=== PATIENT | female | born 1950 | race Caucasian/White ===

== ENCOUNTER 2019-08-28 07:06 | Outpatient (CLI) | payer MEDICARE, OTHER ==
[2019-08-28 11:39] LABS: #Basophils 0.1 thou/uL (0.0-0.2); #Eosinphils 0.3 thou/uL (0.0-0.7); #Lymphocytes 3.7 thou/uL (1.20-3.40); #Monocytes 0.8 thou/uL (0.11-0.59); %Eosinophils 3.8 % (0.0-10.0); %Lymphocytes 41.7 % (21.0-51.0); %Monocytes 8.5 % (0.0-10.0); %Neutrophils 44.9 % (42.0-75.0); Hemoglobin 15.1 g/dL (12.0-16.0); Mean Corpuscular HGB CONC 34.6 g/dL (32.0-36.0); Mean Corpuscular Hemoglobin 30.6 pg (27.0-31.0); Mean Corpuscular Volume 88.5 fL (78.0-98.0); Platelet Count 316 thou/uL (130-400); RBC Distribution Width 11.3 % (11.5-14.5); Red Blood Cell (RBC) Count 4.95 mill/uL (4.20-5.40); White Blood Cell (WBC) Count 8.9 thou/uL (4.8-10.8)
[2019-08-28 12:32] LABS: Anion Gap 16 mmol/L (10-20); BUN (Urea Nitrogen) 10 mg/dL (9.8-20.1); Calc. Creatinine Clearance 0 mL/min (70-130); Calcium 9.6 mg/dL (7.8-10.44); Carbon Dioxide 24 mmol/L (23-31); Chloride 103 mmol/L (98-107); Estimated GFR-MDRD 80; Glucose 161 mg/dL (80-115); Potassium 4.1 mmol/L (3.5-5.1); Sodium 139 mmol/L (136-145)
[2019-08-28 13:07] LABS: Bacteria/HPF None Seen HPF (None Seen); Bilirubin Negative (Negative); Blood, Urine Negative (Negative); Calcium Oxalate Crystals 4+ HPF (None Seen); Clarity Clear (Clear); Glucose, Urine (Dipstick) Normal (Negative); Leukocyte Negative Leu/uL (Negative); Nitrite Negative (Negative); Protein, Urine (Dipstick) 10 mg/dL (Neg-Trace); RBC/HPF 0-3 HPF (0-3); Squamous Epithelial 0-3 HPF (0-3); Urobilinogen Normal mg/dL (Less than 2); WBC/HPF 0-3 HPF (0-3)
[2019-08-28 15:17] LABS: INR-International Normal Ratio 1.1; Prothrombin Time 13.8 sec (12.0-14.7)
[2019-08-29 11:54] LABS: SARS-CoV-2 MS2 Positive; SARS-CoV-2 N Gene Negative; SARS-CoV-2 S Gene Negative; SARS-CoV-2 orf1ab Negative
== END 2019-08-28 07:07 | disposition home or self-care (01) ==
LOC: LABBT 07:06
PROVIDERS: ATTEND Orthopaedic Surgery
DX: Z01.818 Encounter for other preprocedural examination (principal); Z11.59 Encounter for screening for other viral diseases; M17.12 Unilateral primary osteoarthritis, left knee
CPT/HCPCS: 80048; 81001; 85025; 85610; 87081; U0003; 87635

== ENCOUNTER 2019-09-02 05:33 | Day surgery (SDC) | payer MEDICARE ==
[2019-09-02] MEDS ORDERED: Tranexamic Acid 1,000 MG/10 ML VIAL ONE ×2 (06:02→08:54)
[2019-09-02] MEDS ORDERED: Sodium Chloride 0.9% 100 ML ONE (06:02)
[2019-09-02] MEDS ORDERED: Vancomycin 1 GM/200 ML BAG ONE (06:02)
[2019-09-02] MEDS ORDERED: Midazolam HCl 2 mg/2 ml Vial ONE (06:29)
[2019-09-02] MEDS ORDERED: Fentanyl 100 MCG/2 ML VIAL ONE ×2 (06:29→07:14)
[2019-09-02] MEDS ORDERED: Scopolamine 1.5 mg/72 hour Patch ONE (06:30)
[2019-09-02] MEDS ORDERED: Famotidine/PF 20 mg/2ml Vial ONE ×2 (06:30→07:10)
[2019-09-02] MEDS ORDERED: methylPREDNISolone Acetate 40 mg/ml Vial ONE (06:31)
[2019-09-02] MEDS ORDERED: Bupivacaine PF 0.5% 30 ML VIAL ONE (06:31)
[2019-09-02] MEDS ORDERED: Lidocaine 1% (PF) 30 ML VIAL ONE ×2 (06:31→06:37)
[2019-09-02] MEDS ORDERED: Ondansetron PF 4 MG/2 ML Vial IVP PRN ×2 (07:26→07:42)
[2019-09-02] MEDS ORDERED: traMADol HCl 50 MG TAB PO PRN ×3 (07:26→07:42)
[2019-09-02] MEDS ORDERED: Fentanyl 100 MCG/2 ML VIAL SLOW IVP PRN ×2 (07:26→07:43)
[2019-09-02] MEDS ORDERED: Promethazine HCl 25 MG/ML VIAL IM PRN ×3 (07:26→08:43)
[2019-09-02] MEDS ORDERED: Acetaminophen 325 MG TAB PO PRN (07:26)
[2019-09-02] MEDS ORDERED: HYDROcodone/Acetaminophen 10/325 mg Tablet PO PRN ×3 (07:26→07:42)
[2019-09-02] MEDS ORDERED: diphenhydrAMINE 25 MG CAP PO PRN (07:26)
[2019-09-02] MEDS ORDERED: Zolpidem Tartrate 5 MG TAB PO PRN ×2 (07:26→07:42)
[2019-09-02] MEDS ORDERED: Tranexamic Acid 1,000 MG in Sodium Chloride 0.9% 100 ML IVPB SCH (07:30)
[2019-09-02] MEDS ORDERED: Ropivacaine HCl/PF 250 ML in Premix Bag 1 BAG NERVE BLCK SCH (07:42)
[2019-09-02] MEDS ORDERED: Promethazine HCl 25 MG/ML VIAL SLOW IVP PRN (08:43)
[2019-09-02] MEDS ORDERED: Meperidine HCl/PF 25 MG/ML VIAL SLOW IVP PRN (08:43)
[2019-09-02] MEDS ORDERED: HYDROmorphone 2 MG/ML VIAL SLOW IVP PRN (08:43)
[2019-09-02] MEDS ORDERED: Calcium Carbonate 500 MG TAB PO SCH (09:00)
[2019-09-02] MEDS ORDERED: Multivit, Therapeutic 1 TAB PO SCH (09:00)
[2019-09-02] MEDS ORDERED: Non-Formulary Item 1 EACH (Multivitamin [Multi-Vitamin Daily] 1 TAB) PO SCH (09:00)
--- NOTE | 2019-09-02 09:42 | OP ---
DATE OF PROCEDURE: 09/02/2019 PREOPERATIVE DIAGNOSIS: Bilateral knee arthritis, right worse than left. POSTOPERATIVE DIAGNOSIS: Bilateral knee arthritis, right worse than left. PROCEDURES PERFORMED: 1. Right total knee replacement using [employer] pinless navigation. 2. Left knee corticosteroid injection. RECREATION FACILITY MANAGER: Gopi Jenkins PA-C ESTIMATED BLOOD LOSS: Minimal. COMPLICATIONS: None. ANESTHESIA: She did have a general anesthetic as well as a preoperative block. IMPLANTS: [employer] total knee system. The femur was a size 3 cruciate retaining femur. We used a size 3 primary tibial baseplate. We used a 3 x 9 mm CS X3 tibial poly and a 27 x 8 symmetric X3 patella. DISPOSITION: She did go to recovery room in stable condition. INDICATIONS FOR PROCEDURE: This is a 68-year-old female, who had a bilateral knee arthritis with the right being worse than the left. At this time, she is presenting for right knee replacement and a left knee corticosteroid injection. DESCRIPTION OF PROCEDURE: After all appropriate consent forms were explained and signed, she was taken back to the operating room, at this time was given a general anesthetic. Once the level of anesthesia was appropriate, the left knee was cleaned with alcohol and local with 80 mg of Depo-Medrol was injected to the knee without complication. A well-padded tourniquet was placed on the right leg, and the leg was then prepped and draped in standard surgical fashion. The limb was exsanguinated and tourniquet taken up to 300 mmHg. Midline incision was made with a 10 blade down through the skin and subcutaneous tissue. Bovie electrocautery was used to coagulate any brisk venous bleeding. A new blade was used to make a medial parapatellar arthrotomy. Small subperiosteal release was performed medially and excess fat pad was removed. The knee was flexed up to gain access to the femur. The femur was navigated and distal femoral resection was made. Epicondylar access was used to align our sizing jig and this was pinned in place. We sized our femur to be a size 3 cruciate retaining femur. 4:1 cutting block was applied and pinned. Anterior and posterior chamfer cuts were then made. We navigated out our proximal tibia and made our proximal tibial resection. Spreaders were used to remove any posterior osteophytes off the back of the femur as well as remaining meniscal tissue. A long alignment debby was then used to achieve correct rotation of our tibial baseplate and a size 3 primary tibial baseplate was chosen. This was pinned in place. We trialed the polyethylene and a 3 x 9 mm CS X3 tibial polyethylene gave us full extension and good stability throughout range of motion. Two towel clips and a saw were used to cut our patella. Three lug nuts were drilled and 27 x 8 symmetric X3 patella was trialed which sat nicely in the trochlear groove. We then drilled our femur and punched our tibia. All components were removed. The knee was thoroughly irrigated and dried. Cement was mixed into the cement gun on the back table. Components were then placed. The knee was held out in full extension until the cement had dried. All excess bone cement was removed. Multiple #2 Vicryl stitches as well as a Quill were used to close our extensor mechanism. 0 Quill followed by a running Monoderm was then used to close the skin. Surgicel glue was then used on the skin. Once this had dried, soft tissue dressing was applied to the limb, tourniquet was let down, and the toes pinked up nicely. The patient was then awakened and taken to the recovery room in stable condition. All counts were correct at the end of the case. The patient did receive preoperative IV antibiotics. The patient was injected with Marcaine for postoperative pain relief. Job ID: [id number]
[2019-09-02] MEDS ORDERED: Insulin Regular 300 UNITS/3 ML VIAL SC PRN ×2 (10:10)
[2019-09-02] MEDS ORDERED: Dextrose 50% Abboject 50 ML SYRINGE SLOW IVP PRN (10:10)
[2019-09-02] MEDS ORDERED: Dextrose 5% in Water 1,000 ML IV PRN (10:10)
[2019-09-02] MEDS: Sodium Chloride 0.9% 1,000 ML IV SCH ×2 (11:28→14:12)
[2019-09-02] MEDS: Calcium Carbonate 500 MG TAB PO SCH (11:28)
[2019-09-02] MEDS: Aspirin 81 mg Enteric Coated Tablet PO SCH ×2 (11:28→21:14)
[2019-09-02] MEDS ORDERED: Ropivacaine 0.2% HCl/PF (40 MG/20 ML VIAL) ONE (11:42)
[2019-09-02] MEDS ORDERED: Ondansetron PF 4 MG/2 ML Vial ONE (11:42)
[2019-09-02] MEDS ORDERED: Bupivacaine HCl 0.5%/Epinephrine 1:200,000/PF 30 ml Vial ONE (11:42)
[2019-09-02] MEDS ORDERED: PHENYLEPHRINE-NS 100 MCG/ML 10 ML SYRINGE ONE (11:42)
[2019-09-02] MEDS ORDERED: Ketorolac Tromethamine 30 MG/ML VIAL ONE (11:42)
[2019-09-02] MEDS ORDERED: Lidocaine 1% PF 5 ML VIAL ONE (11:42)
[2019-09-02] MEDS ORDERED: PROPOFOL 200 MG/20 ML VIAL ONE (11:42)
[2019-09-02] MEDS ORDERED: Ketorolac Tromethamine 30 MG/ML VIAL IVP SCH ×2 (12:00→14:00)
--- NOTE | 2019-09-02 13:21 | PDOC.HOSPP ---
- Subjective Encounter Date: 09/02/19 Encounter Time: 11:45 Subjective: Patient seen and examined for med mngt. Pain controlled. No CP/SOB. No new complaints. - Objective Vital Signs & Weight: Weight Weight 175 lb Additional Labs: Accuchecks 09/02/19 11:39 POC Glucose 140 H Laboratory Tests 08/27/19 08/27/19 09:46 09:46 Hgb 15.1 Sodium 139 Creatinine 0.73 EKG Reviewed by me: Yes (SR) Hospitalist ROS - Review of Systems Respiratory: denies: cough, dry, shortness of breath, hemoptysis, SOB with excertion, pleuritic pain, sputum, wheezing, other Cardiovascular: denies: chest pain, palpitations, orthopnea, paroxysmal noc. dyspnea, edema, light headedness, other Gastrointestinal: denies: nausea, vomiting, abdominal pain, diarrhea, constipation, melena, hematochezia, other - Medication Medications: Active Medications Generic Name Dose Route Start Last Admin Trade Name Freq PRN Reason Stop Dose Admin Aspirin 81 mg 09/02/19 09:00 09/02/19 11:28 Ecotrin PO Not Given BID ANGELA Calcium Carbonate 500 mg 09/02/19 09:00 09/02/19 11:28 Oscal-500 PO Not Given DAILY [facility] Sodium Chloride 1,000 mls @ 100 mls/hr 09/02/19 07:30 09/02/19 11:28 Normal Saline 0.9% IV Not Given .Q10H ANGELA - Exam General Appearance: NAD Neck: supple, no JVD Heart: RRR, no gallops Respiratory: no wheezes, no rales, no ronchi Gastrointestinal: non-tender, non-distended, normal bowel sounds Extremities: no edema Neurological: no new deficit Hosp A/P - Plan DVT proph w/SCDs DM2 Anxiety GERD Glaucoma Obesity BMI 30 CKD 2 PLAN: Resume Metformin Add sliding scale Resume Effexor PT/OT Full code DPOA - family Thank you for this consultation. Will follow
[2019-09-02] MEDS: CEFAZOLIN 2 GM in Premix Bag 1 BAG IVPB SCH ×2 (14:10→21:15)
[2019-09-02] MEDS: Ketorolac Tromethamine 30 MG/ML VIAL IVP SCH ×2 (14:11→21:13)
[2019-09-02] MEDS ORDERED: Vancomycin 1 GM in Premix Bag 1 BAG IVPB SCH (18:00)
[2019-09-02] MEDS: metFORMIN 500 MG TAB PO SCH (18:01)
[2019-09-03] MEDS: Ketorolac Tromethamine 30 MG/ML VIAL IVP SCH ×4 (02:17→21:21)
[2019-09-03 05:19] LABS: Mean Corpuscular HGB CONC 33.6 g/dL (32.0-36.0); Mean Corpuscular Hemoglobin 30.2 pg (27.0-31.0); Mean Platelet Volume 8.1 fL (7.4-10.4); Platelet Count 267 thou/uL (130-400); RBC Distribution Width 11.5 % (11.5-14.5); Red Blood Cell (RBC) Count 3.98 mill/uL (4.20-5.40); White Blood Cell (WBC) Count 12.4 thou/uL (4.8-10.8)
[2019-09-03] MEDS: Sodium Chloride 0.9% 1,000 ML IV SCH ×3 (06:08→22:58)
[2019-09-03] MEDS: Aspirin 81 mg Enteric Coated Tablet PO SCH ×2 (08:51→21:22)
[2019-09-03] MEDS: Calcium Carbonate 500 MG TAB PO SCH (08:57)
[2019-09-03] MEDS: Ferrous Gluconate 324 MG TAB PO SCH ×2 (08:57→17:41)
[2019-09-03] MEDS: Senokot S 8.6-50 MG TAB PO SCH ×2 (08:57→21:22)
[2019-09-03] MEDS: Multivitamin W/ Minerals 1 TAB PO SCH (08:59)
[2019-09-03] MEDS ORDERED: Calcium Carbonate 500 MG ChewTAB PO PRN (11:34)
[2019-09-03] MEDS ORDERED: Loratadine 10 MG TAB PO PRN (11:34)
[2019-09-03] MEDS ORDERED: Mag-Al 1200 mg/1200 mg/30 ML UDCUP PO PRN (11:35)
--- NOTE | 2019-09-03 13:58 | PRG ---
DATE OF SERVICE: 09/03/2019 SUBJECTIVE: Jeimy is a 68-year-old female, postop day #1 from a right total knee arthroplasty. She is doing relatively well. She has no complaints and she is quite comfortable this morning. OBJECTIVE: VITAL SIGNS: Temperature 98.8, pulse 68, respiratory rate 16, and blood pressure 108/65. GENERAL: She is alert and oriented to person, place, time, situation. Responsive and appropriate with examiner, conversive. MUSCULOSKELETAL: Incision is clean. No strikethrough. No erythema. No malrotation or shortening. LABORATORY DATA: Hemoglobin and hematocrit 12.0 and 35.8. IMPRESSION: A 68-year-old female, postop day #1 right total knee arthroplasty, doing well. PLAN: Continue current care. Probable discharge home tomorrow. Job ID: [id number]
[2019-09-03] MEDS: HYDROcodone/Acetaminophen 10/325 mg Tablet PO PRN ×2 (14:16→21:35)
[2019-09-03] MEDS: metFORMIN 500 MG TAB PO SCH (17:41)
[2019-09-04] MEDS: Ketorolac Tromethamine 30 MG/ML VIAL IVP SCH ×2 (04:41→08:16)
[2019-09-04 05:40] LABS: Hemoglobin 11.2 g/dL (12.0-16.0); Mean Corpuscular HGB CONC 34.8 g/dL (32.0-36.0); Mean Corpuscular Hemoglobin 31.2 pg (27.0-31.0); Mean Corpuscular Volume 89.5 fL (78.0-98.0); Mean Platelet Volume 7.7 fL (7.4-10.4); Platelet Count 256 thou/uL (130-400); RBC Distribution Width 11.3 % (11.5-14.5); Red Blood Cell (RBC) Count 3.61 mill/uL (4.20-5.40); White Blood Cell (WBC) Count 9.1 thou/uL (4.8-10.8)
[2019-09-04] MEDS: Senokot S 8.6-50 MG TAB PO SCH (08:17)
[2019-09-04] MEDS: Calcium Carbonate 500 MG TAB PO SCH (08:17)
[2019-09-04] MEDS: Aspirin 81 mg Enteric Coated Tablet PO SCH (08:17)
[2019-09-04] MEDS: Ferrous Gluconate 324 MG TAB PO SCH (08:17)
[2019-09-04] MEDS: Multivitamin W/ Minerals 1 TAB PO SCH (08:17)
[2019-09-04] MEDS: Sodium Chloride 0.9% 1,000 ML IV SCH (11:12)
[2019-09-04 11:59] VITALS: BP 145/86; TEMP 98.7
[2019-09-04] MEDS: HYDROcodone/Acetaminophen 10/325 mg Tablet PO PRN (12:16)
== END 2019-09-04 13:40 | disposition home or self-care (01) ==
LOC: SDC 05:33 → SJJU 06:00 → SDC 09-04 13:40
PROVIDERS: ATTEND Orthopaedic Surgery
PROC: 3E0U33Z Introduction of Anti-inflammatory into Joints, Percutaneous Approach (ICD-10-PCS; principal; 2019-09-02)
PROC: 0SRD0J9 Replacement of Left Knee Joint with Synthetic Substitute, Cemented, Open Approach (ICD-10-PCS; 2019-09-02)
PROC: 8E0YXBZ Computer Assisted Procedure of Lower Extremity (ICD-10-PCS; 2019-09-02)
PROC: 3E0T3BZ Introduction of Anesthetic Agent into Peripheral Nerves and Plexi, Percutaneous Approach (ICD-10-PCS; 2019-09-02)
PROC: 3E0T3BZ Introduction of Anesthetic Agent into Peripheral Nerves and Plexi, Percutaneous Approach (ICD-10-PCS; 2019-09-02)
DX: M17.0 Bilateral primary osteoarthritis of knee (principal); E11.22 Type 2 diabetes mellitus with diabetic chronic kidney disease; N18.2 Chronic kidney disease, stage 2 (mild); F41.9 Anxiety disorder, unspecified; K21.9 Gastro-esophageal reflux disease without esophagitis; E66.9 Obesity, unspecified; Z68.30 Body mass index [BMI] 30.0-30.9, adult; Z79.84 Long term (current) use of oral hypoglycemic drugs; Z79.899 Other long term (current) drug therapy; Z88.1 Allergy status to other antibiotic agents; Z88.2 Allergy status to sulfonamides
CPT/HCPCS: 20610; 20985; 27447; 64445; 64448; 82962; 85027; 97110 ×3; 97116 ×3; 97139 ×3; 97530 ×2; C1713; C1776; 36415; 36416; J0670; J0690; J1885; J2001; J2250; J2405; J2704; J2795; J2920; J3010; J3370; J3490; S0020; S0028

== ENCOUNTER 2020-07-29 16:16 | Outpatient (CLI) | payer MEDICARE ==
[2020-07-29 18:28] LABS: Bilirubin Neg (Negative); Blood, Urine Negative (Negative); Clarity Clear (Clear); Glucose, Urine (Dipstick) Normal (Negative); Ketone, Urine Negative (Negative); Leukocyte 25 (Negative); Nitrite Negative (Negative); Protein, Urine (Dipstick) Negative (Neg-Trace); Urobilinogen Normal mg/dL (Less than 2)
[2020-07-29 18:29] LABS: #Basophils 0.1 10x3/uL (0.0-0.2); #Eosinphils 0.3 10x3/uL (0.0-0.5); #Monocytes 0.7 10x3/uL (0.0-1.1); #Neutrophils 3.7 10x3/uL (1.5-8.4); %Basophils 0.7 % (0.0-2.0); %Eosinophils 3.2 % (0.0-6.0); %Lymphocytes 44.1 % (18.0-47.0); %Neutrophils 43.8 % (40.0-75.0); Hemoglobin 13.7 g/dL (12.0-15.5); Mean Corpuscular HGB CONC 33.2 g/dL (32.0-36.0); Mean Corpuscular Volume 87.3 fl (81.6-98.3); Mean Platelet Volume 10.8 fl (7.4-10.4); Platelet Count 320 10x3/uL (150-450); Red Blood Cell (RBC) Count 4.73 10x6/uL (3.90-5.03); White Blood Cell (WBC) Count 8.5 10x3/uL (3.5-10.5)
[2020-07-29 18:39] LABS: Bacteria/HPF 1+ HPF (None Seen); RBC/HPF None Seen HPF (0-3); Squamous Epithelial 0-3 HPF (0-3); WBC/HPF 0-3 HPF (0-3)
[2020-07-30 01:06] LABS: SARS-CoV-2 PCR by NAA Not Detected (NotDetected)
== END 2020-07-29 16:17 | disposition home or self-care (01) ==
LOC: LABBT 16:16
PROVIDERS: ATTEND Orthopaedic Surgery
DX: Z01.818 Encounter for other preprocedural examination (principal); M17.12 Unilateral primary osteoarthritis, left knee; M65.331 Trigger finger, right middle finger; Z20.822 Contact with and (suspected) exposure to COVID-19
CPT/HCPCS: 81001; 85025; 85610; U0003; U0005; 87635; 93005; 93010

== ENCOUNTER 2020-08-03 05:44 | Day surgery (SDC) | payer MEDICARE ==
[2020-07-31 11:08] VITALS: BMI 30.9
[2020-08-03] MEDS ORDERED: Sodium Chloride 0.9% 100 ML ONE (06:15)
[2020-08-03] MEDS ORDERED: Tranexamic Acid 1,000 MG/10 ML VIAL ONE ×2 (06:15→09:40)
[2020-08-03] MEDS ORDERED: Lidocaine 1% (PF) 30 ML VIAL ONE ×2 (06:27→06:41)
[2020-08-03] MEDS ORDERED: methylPREDNISolone Acetate 40 mg/ml Vial ONE ×2 (06:27→07:16)
[2020-08-03] MEDS ORDERED: Vancomycin 1.5 GRAM/300 ML BAG 1.5 GM in Premix Bag 1 BAG IVPB SCH (06:30)
[2020-08-03] MEDS ORDERED: Fentanyl 100 MCG/2 ML VIAL ONE ×3 (06:41→10:33)
[2020-08-03] MEDS ORDERED: Midazolam HCl 2 mg/2 ml Vial ONE (06:41)
[2020-08-03] MEDS ORDERED: Clindamycin/D5W 900 mg/50 ml Premix Bag ONE (06:57)
[2020-08-03] MEDS ORDERED: Sterile Water 10 ML ONE (07:01)
[2020-08-03] MEDS ORDERED: Famotidine/PF 20 mg/2ml Vial ONE (07:12)
[2020-08-03] MEDS ORDERED: Zolpidem Tartrate 5 MG TAB PO PRN ×2 (07:24→08:00)
[2020-08-03] MEDS ORDERED: traMADol HCl 50 MG TAB PO PRN ×3 (07:24→08:00)
[2020-08-03] MEDS ORDERED: HYDROcodone/Acetaminophen 10/325 mg Tablet PO PRN ×3 (07:24→08:00)
[2020-08-03] MEDS ORDERED: Promethazine HCl 25 MG/ML VIAL IM PRN ×3 (07:24→08:43)
[2020-08-03] MEDS ORDERED: Fentanyl 100 MCG/2 ML VIAL SLOW IVP PRN ×2 (07:24→07:53)
[2020-08-03] MEDS ORDERED: Acetaminophen 325 MG TAB PO PRN (07:24)
[2020-08-03] MEDS ORDERED: Ondansetron PF 4 MG/2 ML Vial IVP PRN ×2 (07:24→08:00)
[2020-08-03] MEDS ORDERED: Ketorolac Tromethamine 30 MG/ML VIAL ONE (07:27)
[2020-08-03] MEDS ORDERED: PROPOFOL 200 MG/20 ML VIAL ONE (07:27)
[2020-08-03] MEDS ORDERED: Lidocaine 1% PF 5 ML VIAL ONE ×2 (07:27)
[2020-08-03] MEDS ORDERED: Ropivacaine 0.5% HCl/PF (150 MG/30 ML VIAL) ONE (07:27)
[2020-08-03] MEDS ORDERED: PHENYLEPHRINE-NS 100 MCG/ML 10 ML SYRINGE ONE (07:27)
[2020-08-03] MEDS ORDERED: Ropivacaine 2% HCl/PF (20 MG/10 ML VIAL) ONE (07:27)
[2020-08-03] MEDS ORDERED: Metoclopramide HCl 10 MG/2 ML VIAL ONE (07:27)
[2020-08-03] MEDS ORDERED: Ondansetron PF 4 MG/2 ML Vial ONE (07:27)
[2020-08-03] MEDS ORDERED: Tranexamic Acid 1,000 MG in Sodium Chloride 0.9% 100 ML IVPB SCH (07:30)
[2020-08-03] MEDS ORDERED: Ropivacaine HCl/PF 250 ML in Premix Bag 1 BAG NERVE BLCK SCH (08:00)
[2020-08-03] MEDS ORDERED: Bupivacaine 0.25% HCL 30 ML VIAL ONE (08:12)
[2020-08-03] MEDS ORDERED: HYDROmorphone 2 MG/ML VIAL SLOW IVP PRN (08:43)
[2020-08-03] MEDS ORDERED: Meperidine HCl/PF 25 MG/ML VIAL SLOW IVP PRN (08:43)
[2020-08-03] MEDS ORDERED: Promethazine HCl 25 MG/ML VIAL SLOW IVP PRN (08:43)
[2020-08-03] MEDS ORDERED: Non-Formulary Item 1 EACH (Multivitamin [Multi-Vitamin Daily] 1 TABLET Tablet) PO SCH (09:00)
[2020-08-03] MEDS: Aspirin 81 mg Enteric Coated Tablet PO SCH ×2 (11:53→19:59)
[2020-08-03] MEDS: Sodium Chloride 0.9% 1,000 ML IV SCH ×2 (11:53→18:29)
[2020-08-03] MEDS: Loratadine 10 MG TAB PO SCH (11:53)
[2020-08-03] MEDS: Calcium Carbonate 500 MG TAB PO SCH (11:53)
[2020-08-03] MEDS: Ketorolac Tromethamine 30 MG/ML VIAL IVP SCH ×3 (12:07→23:54)
[2020-08-03] MEDS ORDERED: Ketorolac Tromethamine 30 MG/ML VIAL IVP SCH (14:00)
[2020-08-03] MEDS: Clindamycin/D5W 900 MG in Premix Bag 1 BAG IVPB SCH ×2 (14:14→20:00)
[2020-08-03] MEDS: HYDROcodone/Acetaminophen 10/325 mg Tablet PO PRN (14:20)
[2020-08-03] MEDS: Losartan 25 MG TAB PO SCH (17:12)
[2020-08-03] MEDS: diphenhydrAMINE 25 MG CAP PO PRN ×3 (17:13→23:54)
[2020-08-03] MEDS: metFORMIN 500 MG TAB PO SCH (17:13)
[2020-08-03] MEDS: Atorvastatin Calcium 20 MG TAB PO SCH (19:59)
[2020-08-03] MEDS: Cyanocobalamin (Vitamin B-12) 1,000 MCG TAB PO SCH (19:59)
[2020-08-03] MEDS: Ezetimibe 10 MG TAB PO SCH (19:59)
[2020-08-03] MEDS ORDERED: Vancomycin HCl 1.5 GM in Sodium Chloride 0.9% 250 ML 300 ML IVPB SCH (20:00)
[2020-08-04] MEDS: Sodium Chloride 0.9% 1,000 ML IV SCH ×2 (03:13→13:48)
[2020-08-04] MEDS: Ketorolac Tromethamine 30 MG/ML VIAL IVP SCH ×3 (05:35→18:28)
[2020-08-04 06:23] LABS: Hemoglobin 11.4 g/dL (12.0-16.0); Mean Corpuscular HGB CONC 34.1 g/dL (32.0-36.0); Mean Corpuscular Hemoglobin 30.8 pg (27.0-31.0); Mean Corpuscular Volume 90.5 fL (78.0-98.0); Mean Platelet Volume 8.3 fL (7.4-10.4); Platelet Count 235 thou/uL (130-400); RBC Distribution Width 11.4 % (11.5-14.5); White Blood Cell (WBC) Count 9.8 thou/uL (4.8-10.8)
[2020-08-04] MEDS: HYDROcodone/Acetaminophen 10/325 mg Tablet PO PRN ×5 (07:21→22:59)
[2020-08-04] MEDS: Loratadine 10 MG TAB PO SCH (08:32)
[2020-08-04] MEDS: Senokot S 8.6-50 MG TAB PO SCH ×2 (08:32→20:45)
[2020-08-04] MEDS: Aspirin 81 mg Enteric Coated Tablet PO SCH ×2 (08:32→20:45)
[2020-08-04] MEDS: Ferrous Gluconate 324 MG TAB PO SCH ×2 (08:32→18:29)
[2020-08-04] MEDS: Losartan 25 MG TAB PO SCH (08:32)
[2020-08-04] MEDS: Calcium Carbonate 500 MG TAB PO SCH (08:32)
[2020-08-04] MEDS: Multivitamin W/ Minerals 1 TAB PO SCH (08:32)
[2020-08-04] MEDS: metFORMIN 500 MG TAB PO SCH (18:28)
[2020-08-04] MEDS: Atorvastatin Calcium 20 MG TAB PO SCH (20:45)
[2020-08-04] MEDS: Ezetimibe 10 MG TAB PO SCH (20:45)
[2020-08-04] MEDS: Cyanocobalamin (Vitamin B-12) 1,000 MCG TAB PO SCH (20:46)
[2020-08-05] MEDS: Sodium Chloride 0.9% 1,000 ML IV SCH ×2 (00:48→11:10)
[2020-08-05] MEDS: Ketorolac Tromethamine 30 MG/ML VIAL IVP SCH ×2 (00:48→05:20)
[2020-08-05 05:44] LABS: Hemoglobin 11.9 g/dL (12.0-16.0); Mean Corpuscular HGB CONC 34.6 g/dL (32.0-36.0); Mean Corpuscular Hemoglobin 30.8 pg (27.0-31.0); Mean Corpuscular Volume 89.1 fL (78.0-98.0); Mean Platelet Volume 8.1 fL (7.4-10.4); Platelet Count 235 thou/uL (130-400); RBC Distribution Width 11.4 % (11.5-14.5); Red Blood Cell (RBC) Count 3.88 mill/uL (4.20-5.40); White Blood Cell (WBC) Count 11.1 thou/uL (4.8-10.8)
[2020-08-05] MEDS: HYDROcodone/Acetaminophen 10/325 mg Tablet PO PRN ×2 (06:25→11:29)
[2020-08-05] MEDS: Senokot S 8.6-50 MG TAB PO SCH (09:03)
[2020-08-05] MEDS: Aspirin 81 mg Enteric Coated Tablet PO SCH (09:04)
[2020-08-05] MEDS: Multivitamin W/ Minerals 1 TAB PO SCH (09:04)
[2020-08-05] MEDS: Ferrous Gluconate 324 MG TAB PO SCH (09:04)
[2020-08-05] MEDS: Losartan 25 MG TAB PO SCH (09:05)
[2020-08-05] MEDS: Calcium Carbonate 500 MG TAB PO SCH (09:05)
[2020-08-05] MEDS: Loratadine 10 MG TAB PO SCH (09:05)
[2020-08-05 11:55] VITALS: BP 163/84; TEMP 98.5
== END 2020-08-05 15:15 | disposition home or self-care (01) ==
LOC: SDC 05:44 → SURG B 07:24 → SDC 08-05 15:15
PROVIDERS: ATTEND Orthopaedic Surgery
PROC: 0SRD0J9 Replacement of Left Knee Joint with Synthetic Substitute, Cemented, Open Approach (ICD-10-PCS; principal; 2020-08-03)
PROC: 8E0YXBZ Computer Assisted Procedure of Lower Extremity (ICD-10-PCS; 2020-08-03)
PROC: 3E0U33Z Introduction of Anti-inflammatory into Joints, Percutaneous Approach (ICD-10-PCS; 2020-08-03)
DX: M17.12 Unilateral primary osteoarthritis, left knee (principal); M65.331 Trigger finger, right middle finger; I10 Essential (primary) hypertension; E78.5 Hyperlipidemia, unspecified; E11.9 Type 2 diabetes mellitus without complications; K21.9 Gastro-esophageal reflux disease without esophagitis; Z79.84 Long term (current) use of oral hypoglycemic drugs; Z79.899 Other long term (current) drug therapy; Z88.0 Allergy status to penicillin; Z88.1 Allergy status to other antibiotic agents; Z88.2 Allergy status to sulfonamides; Z88.5 Allergy status to narcotic agent; Z96.651 Presence of right artificial knee joint
CPT/HCPCS: 20600; 20985; 27447; 82962; 85027; 97110 ×2; 97116 ×3; 97139 ×3; 97530 ×2; C1713; C1776; 36415; 36416; J0690; J1885; J2001; J2250; J2405; J2704; J2765; J2795; J2920; J3010; J3370; J3490; J7050; Q0163; S0020; S0028